=== PATIENT | female | born 1950 | race Caucasian/White ===

== ENCOUNTER 2017-04-28 06:22 | Inpatient (IN) | payer OTHER ==
[2017-04-17 09:36] LABS: ABSOLUTE BASOPHILS 0.1 thou/uL (0.0-0.2); ABSOLUTE EOSINOPHILS 0.1 thou/uL (0.0-0.7); ABSOLUTE LYMPHOCYTES 2.1 thou/uL (0.8-5.3); ABSOLUTE MONOCYTES 0.6 thou/uL (0.0-1.2); ABSOLUTE NEUTROPHILS 4.6 thou/uL (1.6-8.1); EOSINOPHILS 1.7 %; HEMATOCRIT 47.3 % (37.0-47.0); LYMPHOCYTES 28.1 %; MCH 30.6 pg (26.0-34.0); MCHC 33.8 g/dL (28.0-37.0); MCV 90.3 fL (80.0-100.0); MPV 9.4 fl. (7.2-11.1); NUCLEATED RBCS 0 /100WBC; PLATELET COUNT* 170 thou/uL (150-400); POLYS 61.2 %; RBC 5.24 mil/uL (4.20-5.00); WBC 7.6 thou/uL (4.0-11.0)
[2017-04-17 09:39] LABS: APTT 28.9 Seconds (25.0-31.3); INR 1.1; PROTIME 10.7 Seconds (9.20-11.50)
[2017-04-17 09:48] LABS: ALBUMIN 3.9 g/dL (3.4-5.0); CALCIUM 8.8 mg/dL (8.5-10.1); CREATININE 0.8 mg/dL (0.6-1.3); POTASSIUM 4.2 mmol/L (3.5-5.1); TOTAL BILIRUBIN 0.6 mg/dL (<0.1-1.0); TOTAL PROTEIN 7.5 g/dL (6.4-8.2)
[2017-04-17 10:30] LABS: ESR (SEDRATE) 1 mm/hr (0-30)
--- NOTE | 2017-04-17 11:29 | EKG ---
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: : 1950 Requested By: Ricci Osborne Order Number: [id number] Reading MD: Donnell Martínez Measurements Intervals Maurice Rate: 77 P: 55 [place]: 173 QRS: -7 QRSD: 81 T: 59 QT: 364 QTc: 412 Interpretive Statements Sinus rhythm Baseline wander in lead(s) V3 No previous ECG available for comparison Electronically Signed On 04-17-2017 11:29:38 DRESSMAKER GARMENT FITTER by Donnell Martínez [email or web address] <ELECTRONICALLY SIGNED> By: Donnell Martínez MD, [facility] 04/17/17 [id number] [phone] Donnell Martínez MD, [facility] /EPI
[2017-04-17 18:11] LABS: GLYCOHEMOGLOBIN (HGB A1C) 5.1 % (4.8-5.6)
[~2017-04-28] VITALS: Ht 160 cm; Wt 84.4 kg
[2017-04-28 09:27] VITALS: BP 151/91
[2017-04-28 15:17] VITALS: BP 126/76
--- NOTE | 2017-04-28 15:25 | NUR ---
PATIENT TRANSFERRED FROM PACU TO ROOM 115. ALERT AND ORIENTED. PAIN 2/10. OXYIR GIVEN. O2 2L. SAT 96% PER CAPNO. SCD'S AND TEDS IN PLACE. TOLERATING CRACKERS AND WATER. WHITE IN PLACE WITH YELLOW URINE. FAMILY AT BEDSIDE. WILL CONTINUE TO MONITOR.
[2017-04-28 16:00] VITALS: BP 130/72
--- NOTE | 2017-04-28 16:43 | NUR ---
PATIENT REMAINS ALERT AND ORIENTED. PAIN 7/10. DILAUDID 1MG IV GIVEN AT THIS TIME. IVF INFUSING ORDERED. O2 AT 2L. DRESSING DRY AND INTACT. ICE PACK IN PLACE. SCD'S AND TEDS IN USE. FAMILY AT BEDSIDE. WILL CONTINUE TO MONITOR.
[2017-04-28 20:30] VITALS: BP 140/81
[2017-04-29] VITALS (7 sets, daily range): BP systolic 113–147; BP diastolic 60–89
[2017-04-29 04:43] LABS: HEMATOCRIT 40.2 % (37.0-47.0); HEMOGLOBIN 13.5 gm/dL (12.0-15.0)
--- NOTE | 2017-04-29 05:30 | NUR ---
PATIENT ALERT AND ORIENTED. VITALS STABLE. ON 1L OF OXYGEN. WHITE TO DEPENDENT DRAINAGE, VOIDING ADEQUATELY. VOMITED SHORTLY AFTER RECEIVING IV AND PO PAIN MEDICATION. ZOFRAN GIVEN. ORTHO RESIDENT AWARE OF NAUSEA. ORDERS RECEIVED. FLUIDS INFUSING PER ORDER. HOURLY ROUNDS. BED ALARM IN USE. NURSING WILL CONTINUE TO MONITOR.
--- NOTE | 2017-04-29 09:20 | NUR ---
RECIEVED O.T. ORDERS. WILL DEFER TO P.T. AND NURSING AT THIS TIME. PLEASE ORDER FURTHER O.T. SERVICES IF NEEDED.
--- NOTE | 2017-04-29 15:48 | NUR ---
VISITED WITH PT. SHE WAS ALERT AND ORIENTED. SHE LIVES WITH HER . HE OR OTHER FAMILY MEMBERS WILL BE THERE TO HELP HER. SHE SAID I AM SURRONDED BY FAMILY. STATED SHE HAS A WALKER AT HOME THAT HAS WHEELS ON THE FRONT. SHE IS NORMALLY INDEDENT AT HOME. SHE WANTS HOME HEALTH FIRST AND THEN TRANSITION TO OUTPT. SHE CHOSE [facility] IF THEY TAKE HER INSURANCE AND COME TO [place]. CALLED AND LEFT MESSAGE WITH [facility]-[phone]. SHE WILL HAVE HER BOSS CALL IN AM TO SAY IF THEY CAN TAKE PT.FOR .
[2017-04-30 04:14] LABS: HEMATOCRIT 34.7 % (37.0-47.0); HEMOGLOBIN 11.9 gm/dL (12.0-15.0); MCH 30.9 pg (26.0-34.0); MCHC 34.3 g/dL (28.0-37.0); MCV 90.2 fL (80.0-100.0); MPV 9.2 fl. (7.2-11.1); RBC 3.85 mil/uL (4.20-5.00); RDW-CV 12.9 % (10.5-14.5)
[2017-04-30 04:15] VITALS: BP 124/75
[2017-04-30 04:35] LABS: CALCIUM 7.8 mg/dL (8.5-10.1); CREATININE 0.7 mg/dL (0.6-1.3); POTASSIUM 3.9 mmol/L (3.5-5.1)
--- NOTE | 2017-04-30 05:55 | NUR ---
PATIENT ALERT AND ORIENTED. VITALS STABLE. RA. UP WITH ASSIST X 1 TO BATHROOM. DENIES NAUSEA. ZOFRAN GIVEN PROPHYLACTICALLY THIS MORNING WITH OXYCODONE. FLUIDS INFUSING PER ORDER. HOURLY ROUDNS. BED ALARM IN USE. NURSING WILL CONTINUE TO MONITOR.
[2017-04-30 08:03] VITALS: BP 134/72
--- NOTE | 2017-04-30 12:22 | NUR ---
PT.TO BE DISCHARGED TODAY. SHE WAS SITTING IN CHAIR,WITH MAKEUP ON AND FULLY DRESSED. SHE SAID SHE HAS DECIDED TO DO OUTPT.THERAPY. SHE WOULD LIKE TO GO TO [facility] (IN [place]) CALLED [phone] AND FAXED FACE SHEET,ORDER,H&P,OP REPORT TO THEM AT [phone]. CM HAD CALLED IN PRESCRIPTION FOR [facility]. COPAY WAS $195. INFORMED PT.AND . SHE ASKED THAT NURSE CALL TO SEE IF SHE COULD TAKE SOMETHING LESS EXPENSIVE. SHA SAUNDERS INFORMED.
[2017-04-30] MEDS ORDERED: TRAMADOL 50 MG50 MG PO (12:56)
[2017-04-30] MEDS ORDERED: ELIQUIS2.5 MG PO (12:56)
[2017-04-30] MEDS ORDERED: OXYCODONE HCL5 M1 PO (12:56)
[2017-04-30] MEDS ORDERED: ONDANSETRON HCL4 M2 PO (13:19)
[2017-04-30] MEDS ORDERED: ASPIRIN325 PO (13:20)
[2017-04-30 13:26] VITALS: BP 132/75
--- NOTE | 2017-04-30 13:41 | NUR ---
ASSUMED CARE OF PATIENT AFTER REPORT THIS MORNING. PATIENT AWAKE, ALERT, AND ORIENTED APPROPRIATELY. PHYSICAL ASSESSMENT COMPLETED AND CHARTED. COMPLAINED OF PAIN THIS SHIFT. GIVEN PRN AND SCHEDULED MEDICATIONS, SEE EMAR FOR DOCUMENTATION. VITAL SIGNS STABLE. OXYGEN SATURATION WTIHIN NORMAL LIMITS ON ROOM AIR. PATIENT TRANSFERS AND AMBULATES WITH ASSISTANCE FROM STAFF. USES CALL LIGHT APPROPRIATELY. RECEIVED ORDERS TO DISCHARGE PATEINT HOME. DISCHARGE PAPERWORK COMPLETED AND SIGNED BY ALL APPROPRIATE PARTIES, ON CHART. GIVEN PAPERWORK TO TAKE HOME AND SCRIPTS FOR PAIN AND NAUSEA. IV DISCONTINUED. PATIENT DISCHARGED AT THIS TIME.
--- NOTE | 2017-04-30 16:38 | S ---
[address] [address] SURGICAL PATH RPT PROCEDURE Name: LOREE OJEDA Room: [address] IN [facility].#: [id number] Admission: 04/28/17 Date of : 48 Discharge: 04/30/17 Report #: [id number] Path Case #: [id number] PATHOLOGY REPORT COLLECTION DATE: 04/28/2017 RECEIVED DATE: 04/29/2017 SUBMITTING PHYS: Dr. Ricci Osborne OTHER PHYS: Dr. Jesus Alberto Webster SPECIMEN(S) RECEIVED: A.Left knee bone and tissue * * * * * * * * * * * * FINAL DIAGNOSIS: Left knee bone and tissue, total knee replacement: - Benign meniscus and synovium and benign bone and cartilage with severe, microcystic degenerative changes. (LM:[facility]; 04/30/2017) PATHOLOGIST: Dieter Espinal M.D. REPORT ELECTRONICALLY SIGNED BY: Dieter Espinal M.D. DATE/TIME: 04/30/2017 16:37 * * * * * * * * * * * * GROSS PATHOLOGY: Received in formalin labeled "Loree Ojeda left knee bone and tissue," are multiple segments of bone, including tibial plateau, measuring 11.5 x 10.5 x 3.0 cm in aggregate dimensions with soft tissue; meniscus is present. The specimen shows focal eburnation of the articular surfaces. Driver Starting Gate sections of bone and soft tissue are submitted in cassette A1, following decalcification. (SDY; 04/29/2017) CLINICAL HISTORY: Left knee degenerative joint disease INITIAL CPT CODE(S): A; 63896, 48667 Professional services [place] [facility] [address] Technical services performed by [facility] at [address] [place] [address], [facility] [address] [address]. [place] [address] SURGICAL PATH RPT PROCEDURE Name: LOREE OJEDA Room: [address]#: [id number] Admission: 04/28/17 Date of : [birth year] Discharge: 04/30/17 Report #: [id number] Path Case #: [id number] [facility] [address] [place] [address] PHONE: [phone] DIRECTOR: Ernesto Restrepo M.D. * * * END OF REPORT * * *
--- NOTE | 2017-05-15 07:56 | OP ---
[address] [address] OPERATIVE REPORT Name: JUDY OJEDA Room: [address]#: [id number] Admission: 04/28/17 Attend Phys: Amauri Nickerson Discharge: 04/30/17 Date of : 48 Report #: [id number] THIS REPORT FOR: //name// CC: [facility]Cuz DATE OF SERVICE: 04/28/2017 PREOPERATIVE DIAGNOSIS: Advanced degenerative joint disease of the left knee with severe varus deformity. POSTOPERATIVE DIAGNOSIS: Advanced degenerative joint disease of the left knee with severe varus deformity. PROCEDURE: Left total knee arthroplasty. SURGEON: Ricci Osborne DO ALARM SECURITY OR SURVEILLANCE MONITOR: Manuel Collado DO and Elliott Pryor DO ANESTHESIA: A spinal anesthetic with an adductor block. TOURNIQUET: None. ESTIMATED BLOOD LOSS: 200 mL. ANTIBIOTICS: 2 grams Ancef IVPB 30 minutes prior to incision. IMPLANTS: Biomet Vanguard total knee system with a 62.5 open box posterior stabilized femur, a 67 fixed cruciate tibial plate with locking bar and a 31 mm 3 pegged asymmetric patella, a size 16 ArCom posterior stabilized polyethylene tibial bearing. She received 1 gram of TXA IV preoperatively. SPECIMENS: None. COMPLICATIONS: None. She received 2 grams of vancomycin powder topically intraoperatively. INDICATIONS FOR SURGERY: The patient is a 67-year-old female who has a longstanding severe left knee pain. She had severe deformity with varus deformity to the knee. She walks with severe antalgic gait. She can no longer straighten her knee, lacking about 5-6 degrees of full extension. The patient [address] [address] OPERATIVE REPORT Name: JUDY OJEDA Room: [address]#: [id number] Admission: 04/28/17 Attend Phys: Amauri Nickerson Discharge: 04/30/17 Date of : 48 Report #: [id number] had failed conservative treatment to date including nonsteroidal anti-inflammatories by mouth, injection and bracing. She has failed physical therapy. She has also failed behavior modification. X-ray shows severe degenerative joint disease with complete loss of medial joint space, loss of the medial tibial bone height. The risks and complications of surgery were discussed in detail with this patient. These include, but are not limited to neurovascular damage, infection, fracture, need for further surgery, failure of the prosthesis, recall of the prosthesis, allergies developed to the prosthesis, deep vein thrombosis, pulmonary emboli, myocardial infarction, rhabdomyolysis, even . We have talked about blood loss, blood transfusions. We have talked about above-knee amputation on an occasional basis. We have gone over anesthesia and its risks, complications. A signed informed consent has been attached to chart, may refer to and her knee is marked preoperatively for timeout technique. SURGICAL PROCEDURE: The patient was taken to the operating suite and placed on the operating table in supine position. Following spinal anesthetic and left leg prepped and draped in usual sterile fashion, a tourniquet was applied to left thigh; however, was not utilized for the procedure. Midline incision was made to the left knee after a timeout technique. Incision was carried through skin and subcutaneous tissue down to the extensor mechanism. Median parapatellar incision was then performed. The patella was everted and the knee was flexed to 120 degrees. There was significant scarring about the patella and there was severe bone loss to the medial tibia with loss of actual bone height. There was severe degenerative joint disease throughout the entire knee. A soft tissue dissection was carried out to a certain extent. After bony dissection, bone osteophytes were removed from the medial femoral condyle and medial tibia. The distal femoral drill hole was then performed. The intramedullary guide was placed. The distal cutting guide was inserted and placed at 11 mm from the furthest point on the distal femur. Once that was resected, all cutting guides were removed leaving the [address] Next, the tibial guide was aligned in all planes anteriorly. The tibia resection was made at 10 mm from the highest point on the tibia. This left a very small wafer of area measuring less than a centimeter in the posterior medial corner that was not resected and this was actually mostly osteophytic bone, so therefore decision to not proceed with augmentation of the medial tibial plateau was made at this time. Once the tibia was resected, soft tissue dissection was carried out to the medial collateral ligament to balance the knee thoroughly. The spacing block was placed in the knee and fit well with excellent stability throughout the knee. The femur was then measured once again anterior to posterior. The 3-degree external rotation pins were drilled. The 4-in-1 cutting block was impacted firmly into place. The anterior, posterior condylar cuts followed by anterior, posterior chamfer cuts were performed. Cutting block was removed. All bony wafers were removed. Posterior condyles were trimmed. Osteophytes were removed. The meniscal structures were then removed sharply. The anterior box cutting guide for the femur was impacted firmly into place cheating just [place] [address] OPERATIVE REPORT Name: JUDY OJEDA Room: [address] IN [facility]#: [id number] Admission: 04/28/17 Attend Phys: Amauri Nickerson Discharge: 04/30/17 Date of : 48 Report #: [id number] box cut was performed with the reaming system. The cutting guide was removed followed by placement of a tibial tray. The appropriate sized tibial tray that covered nearly the entire face of the tibia was applied, aligned in all planes, pinned into place. A trial femoral component was then inserted and a trial reduction was performed with various sized spacers. The knee was placed through range of motion, tested for anterior, posterior drawers test at 90 degrees. While the knee was in extension, the patella was prepared by using the Number 100 reaming system leaving a 15 mm thick patella after reaming. This was then sized, drilled and the appropriate patellar button was applied. The knee was placed through range of motion. Patellar tracking was anatomic. Final components were then obtained, placed on the back table. Trial components were removed. The tibia was prepared with the large drill followed by a reamer followed by the punch to accept the final finned tibial tray. Once all trial components were removed, the tibia was drilled in the sclerotic region with the cement drill. Copious irrigation carried out throughout the incision. The bone ends were then thoroughly dried. One bag of Palacos cement was mixed on the back table or tablet. When appropriate, it was placed onto the final components. It was then placed in the interstices of the bone under pressurization, starting with the tibia, impacting the tibial component and the femur, impacting the femoral component and the patellar button. All excess cement was removed sharply. A size 16 mm spacer was placed in the knee. The knee was held in extension while the patellar button was clamped into place. All cement was once again removed sharply. This spacer was then checked quickly before cement started to harden. This gave the best range of motion, best stability throughout the entire arc of motion. Therefore, the final component was obtained. Copious irrigation carried out throughout the incision. The posterior aspect of the capsule was injected with the anesthetic solution. The final component was inserted and locked in place with a locking bar. The knee was thoroughly irrigated then placed at 90 degrees of flexion. Sprinkling of vancomycin powder throughout all the soft tissue areas. It was held at 90 degrees in flexion with pressurization across the knee until complete cement hardening occurred. During this timeframe, the quadriceps and the extensor mechanism was reattached utilizing #1 Vicryl interrupted [id number] sutures followed by a running #1 Stratafix suture. Skin was then reapproximated using 2-0 Monocryl subcutaneous sutures in interrupted fashion followed by a running 3-0 Stratafix subcuticular suture reinforced with Dermabond glue to the outside of the skin. Mepilex dressing was applied followed by a thigh high JAYESH hose. The patient tolerated procedure well. Estimated blood loss 200 mL. No complications were encountered. Final instrument counts and sponge counts correct x 2. <ELECTRONICALLY SIGNED> By: Ricci Osborne DO 05/15/17 [id number] Osborne DO /nt
== END 2017-04-30 13:44 | disposition home or self-care (01) | DRG 470 ==
LOC: M.PRE 06:22 → M.ORTHSURG 09:03 → M.TBA 09:03 → M.PRE 10:07 → M.ORTHSURG 14:09 → M.PRE 15:45 → M.ORTHSURG 04-30 13:44
PROVIDERS: Internal Medicine; Orthopaedic Surgery; ADMIT Internal Medicine
PROC: 0SRD0J9 Replacement of Left Knee Joint with Synthetic Substitute, Cemented, Open Approach (ICD-10-PCS; principal; 2017-04-28)
PROC: 3E0T3BZ Introduction of Anesthetic Agent into Peripheral Nerves and Plexi, Percutaneous Approach (ICD-10-PCS; 2017-04-28)
DX: M17.12 Unilateral primary osteoarthritis, left knee (principal); M21.962 Unspecified acquired deformity of left lower leg